=== PATIENT | female | born 1950 | race Two or more races ===

== ENCOUNTER 2023-09-11 12:57 | Emergency (ER) | payer MEDICARE ==
[~2023-09-11] VITALS: Ht 154.9 cm; Wt 67.2 kg
[2023-09-11 13:40] LABS: BILIRUBIN,URINE NEGATIVE (Neg); CLARITY,URINE CLOUDY (Clear); COLOR,URINE YELLOW (Yellow); GLUCOSE, URINE NEGATIVE (Neg); KETONES,URINE NEGATIVE (Neg); LEUKOCYTE ESTERASE ,URINE LARGE (Neg); NITRITES, URINE POSITIVE (Neg); OCCULT BLOOD,URINE MODERATE (Neg); PROTEIN,URINE TRACE mg/dl (Neg); UROBILINOGEN,URINE 0.2 E.U/dL (0.2-1.0)
[2023-09-11 13:47] LABS: UA COLLECTION TYPE CLN CATCH MIDSTREAM
[2023-09-11 13:49] LABS: BACTERIA,URINE 4+ /HPF (Neg); MUCUS STRANDS NONE SEEN /LPF (Neg); RBC,URINE 20-50 /HPF (0-2); SQUAMOUS EPITHELIAL CELL,UR FEW /LPF (FEW); WBC,URINE TNTC /HPF (0-4)
[2023-09-11 14:22] LABS: BASOPHILS % (AUTO) 0.5 % (0-1); EOSINOPHILS % (AUTO) 0.3 % (0-6); HEMATOCRIT 39.2 % (35.0-45.0); HEMOGLOBIN 13.1 g/dl (12.0-16.0); LYMPHOCYTES # (AUTO) 0.8 X10'3 (1.1-4.8); LYMPHOCYTES % (AUTO) 8.5 % (21-51); MEAN CORPUSCULAR HEMOGLOBIN 29.5 PG (27.0-31.0); MEAN CORPUSCULAR HGB CONC 33.3 g/dL (33.0-36.5); MEAN CORPUSCULAR VOLUME 88.8 FL (78-98); MEAN PLATELET VOLUME 9.7 FL (7.4-10.4); MONOCYTES # (AUTO) 0.7 X10'3 (0-0.9); MONOCYTES % (AUTO) 7.4 % (2-12); NEUTROPHILS # (AUTO) 7.7 X10'3 (1.8-7.7); NEUTROPHILS % (AUTO) 83.3 % (42-75); PLATELET COUNT 156 X10'3 (140-440); RED BLOOD COUNT 4.42 X10'6 (4.20-5.60); RED CELL DISTRIBUTION WIDTH 13.8 % (11.5-14.5); WHITE BLOOD COUNT 9.2 X10'3 (4.5-11.0)
[2023-09-11 14:29] LABS: ALBUMIN 3.8 G/DL (3.4-5.0); ANION GAP 8 (8-16); BLOOD UREA NITROGEN 19 MG/DL (7-18); BUN/CREATININE RATIO 24.1 (10.0-20.0); CALCIUM 9.2 MG/DL (8.5-10.1); CHLORIDE 102 MMOL/L (99-107); CREATININE 0.79 MG/DL (0.40-0.90); GLUCOSE 101 MG/DL (70-104); POTASSIUM 3.8 MMOL/L (3.5-5.1); SODIUM 136 MMOL/L (135-145); TOTAL CARBON DIOXIDE 25.6 MMOL/L (24-32); eCRCL 49 ML/MIN; eGFR 72 ML/MIN
[2023-09-11] MEDS ORDERED: CIPR500T5 PO (14:54)
[2023-09-11 14:59] VITALS: BP 150/61; PULSE 80; RESP 14; TEMP 97.9; O2SAT 96
== END 2023-09-11 15:03 | disposition home or self-care (01) ==
LOC: ER 12:58
DX: N39.0 Urinary tract infection, site not specified (principal); M54.50 Low back pain, unspecified; Z88.0 Allergy status to penicillin; Z79.2 Long term (current) use of antibiotics
CPT/HCPCS: 36415; 80048; 81001; 83605; 84145; 85025; 87040; 87077; 87088; 87186; 99284

== ENCOUNTER 2024-07-04 10:32 | Emergency (ER) | payer MEDICARE ==
[~2024-07-04] VITALS: Ht 154.9 cm; Wt 65.9 kg
--- NOTE | 2024-07-04 10:49 | ELECTROCARDIOGRAPH REPORT ---
[facility] Test Date: 2024-07-04 Test Time: 10:38:27 Pat Name: LUCILLE VALDEZ Department: EMERGENCY ROOM Room: Gender: F [employer]: COLBY : 1950 Requested By: DEPARTMENT EMERGENCY Order Number: [id number] Reading MD: Measurements Intervals [place] Rate: 59 P: 61 AL: 162 QRS: 72 QRSD: 150 T: 53 QT: 445 QTc: 441 Interpretive Statements Sinus bradycardia Right bundle branch block Baseline wander in lead(s) I,III,aVR,aVL,aVF,V1,V3,V4 Please click the below link to view image of tracing.
[2024-07-04 10:56] VITALS: TEMP 98.8
[2024-07-04 11:11] LABS: BASOPHILS % (AUTO) 0.7 % (0-1); EOSINOPHILS # (AUTO) 0.1 X10'3 (0-0.9); EOSINOPHILS % (AUTO) 1.5 % (0-6); HEMATOCRIT 40.8 % (35.0-45.0); HEMOGLOBIN 13.8 g/dl (12.0-16.0); LYMPHOCYTES % (AUTO) 23.5 % (21-51); MEAN CORPUSCULAR HEMOGLOBIN 29.4 PG (27.0-31.0); MEAN CORPUSCULAR HGB CONC 33.9 g/dL (33.0-36.5); MEAN CORPUSCULAR VOLUME 86.8 FL (78-98); MEAN PLATELET VOLUME 9.1 FL (7.4-10.4); MONOCYTES # (AUTO) 0.3 X10'3 (0-0.9); MONOCYTES % (AUTO) 8.2 % (2-12); NEUTROPHILS # (AUTO) 2.8 X10'3 (1.8-7.7); NEUTROPHILS % (AUTO) 66.1 % (42-75); PLATELET COUNT 210 X10'3 (140-440); RED BLOOD COUNT 4.71 X10'6 (4.20-5.60); RED CELL DISTRIBUTION WIDTH 13.5 % (11.5-14.5); WHITE BLOOD COUNT 4.2 X10'3 (4.5-11.0)
--- NOTE | 2024-07-04 11:16 | RADIOLOGY REPORT ---
CHEST RADIOGRAPH Indication: CP Technique: Single frontal view of the chest was obtained COMPARISON: None FINDINGS: Lines and Tubes: None Lungs: Clear Pleura: No effusion. No pneumothorax. Cardiomediastinal contours: Unremarkable Bones: Unremarkable IMPRESSION: No acute disease.
[2024-07-04 11:22] LABS: ALANINE AMINOTRANSFERASE 22 U/L (12-78); ALBUMIN 3.9 G/DL (3.4-5.0); ALBUMIN/GLOBULIN RATIO 1.2 (1.1-1.5); ALKALINE PHOSPHATASE 72 IU/L (46-116); ANION GAP 6 (8-16); ASPARTATE AMINO TRANSFERASE 16 U/L (10-37); BILIRUBIN,TOTAL 1.2 MG/DL (0.1-1.0); BLOOD UREA NITROGEN 18 MG/DL (7-18); BUN/CREATININE RATIO 24.3 (10.0-20.0); CHLORIDE 103 MMOL/L (99-107); CREATININE 0.74 MG/DL (0.40-0.90); GLUCOSE 84 MG/DL (70-104); POTASSIUM 3.9 MMOL/L (3.5-5.1); SODIUM 138 MMOL/L (135-145); TOTAL CARBON DIOXIDE 28.8 MMOL/L (24-32); TOTAL PROTEIN 7.2 G/DL (6.4-8.2); eCRCL 51 ML/MIN; eGFR 77 ML/MIN
[2024-07-04 11:34] LABS: PRO BRAIN NATRIURETIC PEPTIDE 469 PG/ML (0-125)
[2024-07-04] MEDS: cloNIDine 0.1 mg tablet PO ONE (11:44)
--- NOTE | 2024-07-04 12:14 | Physician Documentation ---
History of Present Illness ~ Chief Complaint: Dizziness Stated Complaint: CHEST TIGHTNESS/DIFF BREATHING POST COLONOSCOPY Time Seen by MD: 11:04 Primary Medical Doctor: [facility] HPI 74 year old female with elevated blood pressure and shortness of breath, chest pressure, and dizziness since her recent colonoscopy. She does not have a history of hypertension but has noted elevated blood pressure over the past few weeks. Denies fever, cough, N/V/d. Medication Reconciliation Allergies: Coded Allergies: Penicillins (Verified Allergy, Unknown, 07/04/24) Past Medical History Past Medical History: UTI Past Surgical History: noncontributory Review of Systems All Other Systems at this time: Reviewed and Negative Physical Exam Vital Signs: RN Vital Signs have been reviewed: Yes, Temperature: 98.8, Source: Temporal, Heart Rate: 66, Respiratory Rate: 16, BP: 230/101, Pulse Oximetry: 100, Weight: 65.900 Oxygen Flow Rate: 0 Physical Exam HEENT: PERRL, moist oral mucosa, EOMI Pulmonary: No respiratory distress Cardiac: RRR, no murmur, rub or gallop MSK: no deformity Skin: w/d/i, no rash Neuro: alert, nonfocal Psych: normal affect Progress Results/Orders Results/Orders Orders - FATUMA BOCANEGRA MD Page Hospitalist (07/04/24 ) Completed Orders - FATUMA BOCANEGRA MD Clonidine Tablet (Catapres Tablet) (07/04/24 11:25) Medications Received in ER Medications (Trade) Dose Ordered Sig/Talha Route PRN Reason Start Time Stop Time Status Last Admin Dose Admin (Catapres tablet) 0.1 mg ONCE ONCE PO 07/04/24 11:25 07/04/24 11:26 DC 07/04/24 11:44 0.1 MG Vital Signs 07/04/24 07/04/24 07/04/24 07/04/24 10:56 11:22 11:22 12:33 Temp 98.8 Pulse 57 66 66 Resp 18 16 16 B/P (MAP) 173/83 230/101 (144) 140/80 (100) Pulse Ox 100 100 98 O2 Flow Rate 0 0 Laboratory Tests Test 07/04/24 10:39 White Blood Count 4.2 L Red Blood Count 4.71 Hemoglobin 13.8 Hematocrit 40.8 Mean Corpuscular Volume 86.8 Mean Corpuscular Hemoglobin 29.4 Mean Corpuscular Hemoglobin Concent 33.9 Red Cell Distribution Width 13.5 Platelet Count 210 Mean Platelet Volume 9.1 Neutrophils (%) (Auto) 66.1 Lymphocytes (%) (Auto) 23.5 Monocytes (%) (Auto) 8.2 Eosinophils (%) (Auto) 1.5 Basophils (%) (Auto) 0.7 Neutrophils # (Auto) 2.8 Lymphocytes # (Auto) 1.0 L Monocytes # (Auto) 0.3 Eosinophils # (Auto) 0.1 Basophils # (Auto) 0.0 CBC Comment Sodium Level 138 Potassium Level 3.9 Chloride Level 103 Carbon Dioxide Level 28.8 Anion Gap 6 L Blood Urea Nitrogen 18 Creatinine 0.74 Estimated GFR/1.73 m2 77 BUN/Creatinine Ratio 24.3 H Glucose Level 84 Calcium Level 9.0 Total Bilirubin 1.2 H Aspartate Amino Transf (AST/SGOT) 16 Alanine Aminotransferase (ALT/SGPT) 22 Alkaline Phosphatase 72 Troponin I High Sensitivity 11 Pro-B-Type Natriuretic Peptide 469 H Total Protein 7.2 Albumin 3.9 Globulin 3.3 Albumin/Globulin Ratio 1.2 Chemistry Comments EKG/XRAY/CT/US/VASC/MRI EKG : Indication: shortness of breath EKG Rate: 73 EKG: NSR, RBBB Additional Comment my interpretation: NSR, RBBB, no stemi criteria Chest X-Ray : Interpreted By: self Views: 1 VIEW Indication: shortness of breath Lungs: normal Mediastinum: normal Ribs/Bones: normal Abdomen: normal Impression: no acute disease Medical Decision Making Findings 74 year old female with marked hypertension and symptomatic. Workup otherwise benign. Provided antihypertensive and observed. Over the course of several hours the patient's blood pressure decreased and her symptoms largely resolved. She refused admission despite a thorough discussion of risks of leaving. Discharged with return precautions and low dose of lisinopril, instructions to follow up with PCP. Differential Dx:Considerations: Include: anemia, CVA, dysrhythmia, electrolyte imbalance, hypovolemia, myocardial infarction, pulmonary embolus, respiratory failure, vertigo central, vertigo peripheral Additional Information Ddx includes hypertensive urgency, hypertensive emergency. Departure Disposition: 01 HOME / SELF CARE / HOMELESS Admitted to Inpatient Unit: to hospitalist Impression: Primary Impression: Hypertension Condition: Stable Referrals: NO PRIMARY CARE PROVIDER (PCP) Prescriptions Lisinopril (LISINOPRIL) 10 Mg Tablet 1 TAB PO DAILY for 30 Days, #30 TAB 0 Refills Prov: FATUMA BOCANEGRA MD 07/04/24 Education Educated: Patient, Family Educated regarding: diagnosis, treatment, prognosis, need for follow up Signature Scribe Signature: . Attestation: . FATUMA BOCANEGRA MD July 04, 2024 12:14
[2024-07-04] MEDS ORDERED: LISI10TA27 PO (13:25)
[2024-07-04 13:54] VITALS: BP 127/66; PULSE 65; RESP 16; O2SAT 97
== END 2024-07-04 13:58 | disposition home or self-care (01) ==
LOC: ER 10:32
DX: I10 Essential (primary) hypertension (principal); Z88.0 Allergy status to penicillin
CPT/HCPCS: 36415; 71045; 80053; 83880; 84484; 85025; 93005; 99285